=== PATIENT | female | born 1975 | race Caucasian/White ===

== ENCOUNTER 2018-12-27 13:37 | Emergency (ER) | payer MEDICAID ==
[~2018-12-27] VITALS: Ht 157.5 cm; Wt 81.6 kg
[2018-12-27 13:45] VITALS: BP 113/69
--- NOTE | 2018-12-27 13:47 | NUR ---
TO LOBBY AWAITING BED IN ED
--- NOTE | 2018-12-27 14:27 | NUR ---
PATIENT AMBULATED TO ER BED 12
--- NOTE | 2018-12-27 14:30 | NUR ---
PT BIB SELF C/O LEFT FOOT PAIN X 1 MONTH S/P PLAYING VOLLEYBALL. PT REPORTS PULSING PAIN ON LATERAL LT FOOT THAT RADIATES TO TOES AT 8/10, PAIN INCREASES WITH PUTTING ON SHOES AND PRESSURE, PAIN ALLEVIATED BY REST, PT TX W/ IBUPROFEN W/ SOME RELIEF. NO DEFORMITY, REDNESS, SWELLING OR BRUISING NOTED. + CMS. VSS. ER MD TO SEE PT. MEDHX:DENIES RX:IBUPROFEN
[2018-12-27 15:06] VITALS: BP 122/72
--- NOTE | 2018-12-27 15:06 | NUR ---
Patient discharged with v/s stable. Written and verbal after care instructions given and explained. Patient alert, oriented and verbalized understanding of instructions. Ambulatory with steady gait. All questions addressed prior to discharge. ID band removed. Patient advised to follow up with PMD. Pt provided with recommendation for podiatry. Rx of Motrin 400mg and Acetaminophen 500mg given. Patient educated on indication of medication including possible reaction and side effects. Opportunity to ask questions provided and answered.
== END 2018-12-27 15:06 | disposition home or self-care (01) ==
LOC: MED 13:37
DX: M79.672 Pain in left foot (principal)
CPT/HCPCS: 73630; 99283

== ENCOUNTER 2019-02-28 13:20 | Emergency (ER) | payer MEDICAID, OTHER ==
[~2019-02-28] VITALS: Ht 157.5 cm; Wt 87.7 kg
--- NOTE | 2019-02-28 13:33 | NUR ---
PATIENT AMBULATED TO BED 6.
[2019-02-28 13:34] VITALS: BP 107/65
--- NOTE | 2019-02-28 13:40 | NUR ---
43/F TO ED WITH C/O BILATERAL LOWER EXTREMITY SWELLING UPON SITTING FRO LONG PERIODS OF TIME. DENIES PAIN AT THIS TIME. NO SWELLING/EDEMA NOTED. LUNG SOUNDS CELAR BILATERALLY. IN BED FOR MSE.
--- NOTE | 2019-02-28 13:52 | NUR ---
DR NGUYỄN AT BEDSIDE
[2019-02-28 14:38] LABS: BASOPHILS % (AUTO) 0.5 % (0.0-2.0); EOSINOPHILS # (AUTO) 0.3 K/uL (0-0.4); EOSINOPHILS % (AUTO) 3.7 % (0.0-4.0); HEMATOCRIT 35.1 % (36-48); HEMOGLOBIN 11.6 g/dL (12.0-16.0); LYMPHOCYTES # (AUTO) 2.3 K/uL (2.5-16.5); LYMPHOCYTES % (AUTO) 30.6 % (20.5-51.1); MEAN CORPUSCULAR HEMOGLOBIN 28 pg (27-31); MEAN CORPUSCULAR HGB CONC 33 g/dL (33-37); MEAN CORPUSCULAR VOLUME 84.4 fL (80-94); MONOCYTES # (AUTO) 0.5 K/uL (0.8-1.0); MONOCYTES % (AUTO) 6.4 % (1.7-9.3); NEUTROPHILS # (AUTO) 4.5 K/uL (1.8-7.7); NEUTROPHILS % (AUTO) 58.8 % (42.2-75.2); PLATELET COUNT (AUTO) 232 K/uL (140-450); RED BLOOD CELL COUNT(AUTO) 4.16 MIL/uL (4.20-5.40); RED CELL DISTRIBUTION WIDTH 13.4 % (11.6-13.7); WHITE BLOOD COUNT (AUTO) 7.6 K/uL (4.8-10.8)
[2019-02-28 14:48] LABS: ANION GAP 10.8 (8-16); CARBON DIOXIDE 26.9 mmol/L (21-32); CREATININE 0.7 mg/dL (0.6-1.3); POTASSIUM 3.7 mmol/L (3.5-5.1)
[2019-02-28 15:24] VITALS: BP 107/65
--- NOTE | 2019-02-28 15:24 | NUR ---
Patient discharged with v/s stable. Written and verbal after care instructions given and explained. Patient verbalized understanding. Ambulatory with steady gait. All questions addressed prior to discharge. Advised to follow up with PMD.
== END 2019-02-28 15:24 | disposition home or self-care (01) ==
LOC: MED 13:20
DX: R60.0 Localized edema (principal)
CPT/HCPCS: 36415; 80048; 84484; 85025; 85379; 93005; 99284

== ENCOUNTER 2019-03-25 10:25 | Emergency (ER) | payer OTHER ==
[~2019-03-25] VITALS: Ht 157.5 cm; Wt 81.6 kg
[2019-03-25 10:33] VITALS: BP 118/71
[2019-03-25] MEDS: IBUPROFEN 400 MG TAB PO ONE (12:11)
[2019-03-25 12:28] VITALS: BP 118/71
== END 2019-03-25 12:29 | disposition home or self-care (01) ==
LOC: MED 10:25
DX: B34.9 Viral infection, unspecified (principal); J02.9 Acute pharyngitis, unspecified
CPT/HCPCS: 87081; 99283

== ENCOUNTER 2019-04-17 20:44 | Emergency (ER) | payer OTHER ==
[~2019-04-17] VITALS: Ht 157.5 cm; Wt 81.6 kg
[2019-04-17 20:56] VITALS: BP 125/77
--- NOTE | 2019-04-17 20:57 | NUR ---
FLU SWAB COLLECTED, PT TO [facility]
--- NOTE | 2019-04-17 22:00 | NUR ---
AMBULATES TO CHAIR B WITH UPRIGHT, STEADY GAIT.
[2019-04-17] MEDS ORDERED: ACETAMINOPHEN EXTRA STRENGTH 500 MG TAB PO ONE ×2 (22:35→22:40)
[2019-04-17 22:50] VITALS: BP 118/80
--- NOTE | 2019-04-17 22:50 | NUR ---
Patient discharged with v/s stable. Written and verbal after care instructions given and explained. Patient alert, oriented and verbalized understanding of instructions. Ambulatory with steady gait. All questions addressed prior to discharge. ID band removed. Patient advised to follow up with PMD. Rx of Promethazine, Tamiflu and Tylenol given. Patient educated on indication of medication including possible reaction and side effects. Opportunity to ask questions provided and answered.
== END 2019-04-17 22:50 | disposition home or self-care (01) ==
LOC: MED 20:44
DX: J10.1 Influenza due to other identified influenza virus with other respiratory manifestations (principal)
CPT/HCPCS: 87804; 99283

== ENCOUNTER 2019-04-26 11:16 | Emergency (ER) | payer OTHER ==
[~2019-04-26] VITALS: Ht 157.5 cm; Wt 86.7 kg
[2019-04-26 11:28] VITALS: BP 111/71
--- NOTE | 2019-04-26 11:31 | NUR ---
PT AMBULATES TO BED 9
--- NOTE | 2019-04-26 11:48 | NUR ---
44 Y/O FEMALE C/O COUGH AND CONGESTION X 1 WK. STATES SHE WAS DIAGNOSED WITH INFLUENZA AND TOOK ALL HER TAMIFLU. STATES SHE IS OUT AND WANTS MEDICATION FOR COUGH. RR EVEN AND UNLABORED, LUNG SOUNDS CLEAR THROUGHOUT. PT SITTING UPRIGHT CALM AND PLEASANT. VSS MEDHX: DENIES ALLERGIES: CHIDI
[2019-04-26 11:53] VITALS: BP 111/71
--- NOTE | 2019-04-26 11:53 | NUR ---
Patient discharged with v/s stable. Written and verbal after care instructions given and explained. Patient alert, oriented and verbalized understanding of instructions. Ambulatory with steady gait. All questions addressed prior to discharge. ID band removed. Patient advised to follow up with PMD. Rx of Dacia Castorena given. Patient educated on indication of medication including possible reaction and side effects. Opportunity to ask questions provided and answered.
== END 2019-04-26 11:53 | disposition home or self-care (01) ==
LOC: MED 11:16
DX: B34.9 Viral infection, unspecified (principal)
CPT/HCPCS: 99283

== ENCOUNTER 2019-09-16 09:02 | Emergency (ER) | payer OTHER, SELFPAY ==
[~2019-09-16] VITALS: Ht 154.9 cm; Wt 81.6 kg
[2019-09-16 09:13] VITALS: BP 104/73
--- NOTE | 2019-09-16 09:23 | NUR ---
C/O COUGH,CHEST PAIN WHILE COUGHING X 2DAYS, N/V/D X TODAY. PATIENT HAD COVID TESTED 14 DAYS AGO NEGATIVE. DENIES CP AT THIS TIME. MED HX: DENIES
--- NOTE | 2019-09-16 10:27 | NUR ---
COVID SWAB DONE.
[2019-09-16 10:36] VITALS: BP 104/73
== END 2019-09-16 10:36 | disposition home or self-care (01) ==
LOC: EEVIPCON 09:02 → MED 09:02
DX: B34.9 Viral infection, unspecified (principal); Z20.828 Contact with and (suspected) exposure to other viral communicable diseases
CPT/HCPCS: 99283; U0003

== ENCOUNTER 2019-11-29 17:25 | Emergency (ER) | payer OTHER, SELFPAY ==
[~2019-11-29] VITALS: Ht 160 cm; Wt 89.8 kg
[2019-11-29 17:27] VITALS: BP 121/69
--- NOTE | 2019-11-29 17:42 | NUR ---
GIGI LOUIS EVALUATING PT AT BEDSIDE
--- NOTE | 2019-11-29 17:44 | NUR ---
44/F C/O CHRONIC L KNEE PAIN BUT WORSENING OVER THE LAST 1 WEEK. DENIES TRAUMA. STATES PT IS CRAMPING, AND FEELS LIKE THIS IS A MASS BEHIND THE LEFT KNEE. NO SOB, CP, LEG SWELLING OR REDNESS. VSS. PAIN 10/19. MED HX: DENIES
[2019-11-29] MEDS ORDERED: KETOROLAC 30 MG/ML VIAL IM ONE (17:45)
--- NOTE | 2019-11-29 17:52 | NUR ---
TRAINMAN AT BEDSIDE
[2019-11-29 18:42] VITALS: BP 121/69
--- NOTE | 2019-11-29 18:42 | NUR ---
Patient discharged with v/s stable. Written and verbal after care instructions given and explained. Patient alert, oriented and verbalized understanding of instructions. Ambulatory with steady gait. All questions addressed prior to discharge. ID band removed. Patient advised to follow up with PMD. Rx of Robaxin and Naprosyn given. Patient educated on indication of medication including possible reaction and side effects. Opportunity to ask questions provided and answered.
== END 2019-11-29 18:42 | disposition home or self-care (01) ==
LOC: MED 17:25
DX: M25.562 Pain in left knee (principal)
CPT/HCPCS: 73562; 96372; 99283; J1885; Q0092

== ENCOUNTER 2020-02-02 10:16 | Emergency (ER) | payer OTHER, SELFPAY ==
[~2020-02-02] VITALS: Ht 157.5 cm; Wt 86.2 kg
[2020-02-02 10:37] VITALS: BP 124/73
--- NOTE | 2020-02-02 10:43 | NUR ---
Chills, sore throat, nasal congestion. Close contact with COVID + person.
--- NOTE | 2020-02-02 11:04 | NUR ---
Dr. Avalos is evaluating the patient in the OF tent.
--- NOTE | 2020-02-02 11:07 | NUR ---
COVID SWAB SENT TO LAB.
[2020-02-02 11:33] VITALS: BP 124/73
--- NOTE | 2020-02-03 20:17 | NUR ---
Positive COVID-19 test results were received from lab. A copy of the test results were given to Infection
== END 2020-02-02 11:32 | disposition home or self-care (01) ==
LOC: EEVIPCON 10:16 → MED 10:16
DX: J02.9 Acute pharyngitis, unspecified (principal); Z20.828 Contact with and (suspected) exposure to other viral communicable diseases; R68.83 Chills (without fever); R09.89 Other specified symptoms and signs involving the circulatory and respiratory systems
CPT/HCPCS: 99283; U0003

== ENCOUNTER 2020-02-13 09:43 | Emergency (ER) | payer OTHER, SELFPAY ==
[~2020-02-13] VITALS: Ht 157.5 cm; Wt 86.2 kg
[2020-02-13 09:53] VITALS: BP 128/78
--- NOTE | 2020-02-13 09:57 | NUR ---
44/F BIB SELF C/O COUGH, CONGESTION,HO[place]AND 09/18 X 9 DAYS, BLOODY NOSE X TODAY. COVID-19 TESTED POSITIVE 02/02/20.PMH: DENIES.
[2020-02-13 10:40] VITALS: BP 128/78
--- NOTE | 2020-02-13 10:40 | NUR ---
Patient discharged with v/s stable. Written and verbal after care instructions given and explained. Patient alert, oriented and verbalized understanding of instructions. Ambulatory with steady gait. All questions addressed prior to discharge. ID band removed. Patient advised to follow up with PMD. Rx of MOTRIN & PREDNISONE given. Patient educated on indication of medication including possible reaction and side effects. Opportunity to ask questions provided and answered.
== END 2020-02-13 10:40 | disposition home or self-care (01) ==
LOC: MED 09:43
DX: U07.1 COVID-19 (principal); R05 Cough
CPT/HCPCS: 71045; 99283

== ENCOUNTER 2020-04-16 09:33 | Emergency (ER) | payer OTHER, SELFPAY ==
[~2020-04-16] VITALS: Ht 157.5 cm; Wt 90.7 kg
[2020-04-16 09:42] VITALS: BP 132/83
[2020-04-16 10:07] VITALS: BP 132/83
== END 2020-04-16 10:17 | disposition home or self-care (01) ==
LOC: MED 09:33
DX: M25.572 Pain in left ankle and joints of left foot (principal); R03.0 Elevated blood-pressure reading, without diagnosis of hypertension
CPT/HCPCS: 99282

== ENCOUNTER 2020-05-20 19:32 | Emergency (ER) | payer OTHER, SELFPAY ==
[~2020-05-20] VITALS: Ht 152.4 cm; Wt 85.7 kg
--- NOTE | 2020-05-20 19:42 | NUR ---
PT TAKEN TO BED 9
[2020-05-20 19:43] VITALS: BP 113/54
[2020-05-20 19:46] VITALS: BP 113/54
--- NOTE | 2020-05-20 19:49 | NUR ---
see complete assessment.
--- NOTE | 2020-05-20 20:09 | NUR ---
Dr. Richardson examining patient.
[2020-05-20] MEDS ORDERED: IBUPROFEN 600 MG TAB PO ONE (20:20)
[2020-05-20] MEDS ORDERED: ACETAMINOPHEN EXTRA STRENGTH 500 MG TAB PO ONE (20:20)
== END 2020-05-20 20:25 | disposition home or self-care (01) ==
LOC: MED 19:32
DX: J06.9 Acute upper respiratory infection, unspecified (principal); Z20.822 Contact with and (suspected) exposure to COVID-19
CPT/HCPCS: 99283; U0003

== ENCOUNTER 2020-10-02 11:00 | Emergency (ER) | payer OTHER ==
[~2020-10-02] VITALS: Ht 154.9 cm; Wt 92.1 kg
[2020-10-02 11:10] VITALS: BP 119/84
--- NOTE | 2020-10-02 11:24 | NUR ---
pt ambulated to bed 09.
--- NOTE | 2020-10-02 11:37 | NUR ---
45 Y/O FEMALE C/O L CALF PAIN X1 WEEK. PT WAS HIT BY PAINTBALL IN L CALF AND NOW SHE REPORTS SWELLING. PT REPORTS 7/10 PAIN. UPON PALPATION NO PAIN OR SWELLING NOTED PMH:DENIES NKDA
--- NOTE | 2020-10-02 13:07 | NUR ---
PT CURRENTLY RESTING BEDSIDE WITH EYES CLOSED. VITAL SIGNS STABLE. BED IN LOWEST POSIITON WITH SIDERAIL X1 UP. PT DENIES ANY PAIN AT THIS MOMEMT. WILL CONTINUE TO MONITOR.
[2020-10-02] MEDS ORDERED: IBUP-2213 PO (14:31)
--- NOTE | 2020-10-02 14:32 | NUR ---
SISTER CALLED, STATES SHE WILL PROTOTYPE ENGINEER MANAGER PT
[2020-10-02 14:33] VITALS: BP 111/75
--- NOTE | 2020-10-02 14:34 | NUR ---
Patient discharged with v/s stable. Written and verbal after care instructions given and explained. Patient alert, oriented and verbalized understanding of instructions. Ambulatory with steady gait. All questions addressed prior to discharge. ID band removed. Patient advised to follow up with PMD. Rx of MOTRIN 600 MG PO PRN Q8 HRS FOR PAIN given. Patient educated on indication of medication including possible reaction and side effects. Opportunity to ask questions provided and answered.
== END 2020-10-02 14:34 | disposition home or self-care (01) ==
LOC: MED 11:00
DX: S80.12XA Contusion of left lower leg, initial encounter (principal); Z79.899 Other long term (current) drug therapy; X58.XXXA Exposure to other specified factors, initial encounter; Y93.69 Activity, other involving other sports and athletics played as a team or group; Y92.89 Other specified places as the place of occurrence of the external cause; Y99.8 Other external cause status
CPT/HCPCS: 36415; 85379; 93971; 99284

== ENCOUNTER 2021-01-23 22:05 | Emergency (ER) | payer OTHER ==
[~2021-01-23] VITALS: Ht 154.9 cm; Wt 88.5 kg
[~2021-01-23 22:05] MED LIST: IBUP-2213 PO
[2021-01-23 22:20] VITALS: BP 100/71
--- NOTE | 2021-01-23 22:25 | NUR ---
PATIENT IN TENT
[2021-01-23] MEDS ORDERED: NACL 0.9% 1,000 ML IV ONE (23:15)
[2021-01-23] MEDS ORDERED: ACETAMINOPHEN EXTRA STRENGTH 500 MG TAB PO ONE (23:15)
--- NOTE | 2021-01-24 00:09 | NUR ---
CHIEF POWER DISPATCHER AT TENT LOOKING FOR PT. TOLD NO PATIENT AROUND
[2021-01-24 00:10] LABS: BASOPHILS % (AUTO) 0.4 % (0.0-2.0); EOSINOPHILS # (AUTO) 0.3 K/uL (0-0.4); EOSINOPHILS % (AUTO) 3.3 % (0.0-4.0); HEMATOCRIT 32.9 % (36-48); LYMPHOCYTES # (AUTO) 2.8 K/uL (2.5-16.5); MEAN CORPUSCULAR HEMOGLOBIN 28 pg (27-31); MEAN CORPUSCULAR HGB CONC 33 g/dL (33-37); MEAN CORPUSCULAR VOLUME 82.2 fL (80-94); MONOCYTES # (AUTO) 0.6 K/uL (0.8-1.0); MONOCYTES % (AUTO) 6.9 % (1.7-9.3); NEUTROPHILS # (AUTO) 4.9 K/uL (1.8-7.7); NEUTROPHILS % (AUTO) 57.4 % (42.2-75.2); PLATELET COUNT (AUTO) 256 K/uL (140-450); RED BLOOD CELL COUNT(AUTO) 4.01 MIL/uL (4.20-5.40); RED CELL DISTRIBUTION WIDTH 13.9 % (11.6-13.7); WHITE BLOOD COUNT (AUTO) 8.6 K/uL (4.8-10.8)
[2021-01-24 00:43] LABS: ALBUMIN 3.4 g/dL (3.4-5.0); ANION GAP 12.8 (8-16); CARBON DIOXIDE 27.8 mmol/L (21-32); CREATININE 0.8 mg/dL (0.6-1.3); POTASSIUM 3.6 mmol/L (3.5-5.1); TOTAL BILIRUBIN 0.2 mg/dL (0.0-1.0)
[2021-01-24] MEDS ORDERED: ALBU0.0912 IH (01:32)
[2021-01-24] MEDS ORDERED: PRED20TA5 PO (01:32)
[2021-01-24 01:58] VITALS: BP 110/79
== END 2021-01-24 01:59 | disposition home or self-care (01) ==
LOC: MED 22:05
DX: R05.9 Cough, unspecified (principal); Z20.822 Contact with and (suspected) exposure to COVID-19; Z79.1 Long term (current) use of non-steroidal anti-inflammatories (NSAID); Z79.899 Other long term (current) drug therapy; Z79.51 Long term (current) use of inhaled steroids
CPT/HCPCS: 36415; 71045; 80053; 85025; 99284